=== PATIENT | male | born 1995 | race Two or more races ===

== ENCOUNTER 2017-03-04 17:44 | Emergency (ER) | payer SELFPAY | END 2017-03-04 18:48 | disposition left against medical advice (07) | LOC: ER 18:15 | DX: R22.0 Localized swelling, mass and lump, head (principal); Z53.21 Procedure and treatment not carried out due to patient leaving prior to being seen by health care provider ==

== ENCOUNTER 2017-04-16 15:27 | Emergency (ER) | payer MEDICAID, OTHER ==
[~2017-04-16] VITALS: Ht 167.6 cm; Wt 83.9 kg
[2017-04-16] MEDS ORDERED: SODIUM CHLORIDE 0.9% 1,000 ML IV ONE (16:15)
[2017-04-16 18:12] LABS: Basophils # (auto) 0.1 uL; Basophils % (auto) 0.7 % (0.0-2.0); Eosinophils # (auto) 0.2 uL; Eosinophils % (auto) 2.4 % (0.0-7.0); Hematocrit 46.5 % (41.0-53.0); Hemoglobin 15.7 g/dL (13.5-17.5); Lymphocytes # (auto) 2.4 uL; Lymphocytes % (auto) 29.1 % (10.0-50.0); Mean Corpuscular Hgb Conc. 33.7 g/dL (32.0-36.0); Mean Corpuscular Volume 94.9 fL (80.0-100.0); Monocytes # (auto) 0.8 uL; Monocytes % (auto) 9.2 % (0.0-12.0); Neutrophils # (auto) 4.8 uL; Neutrophils % (auto) 58.6 % (37.0-80.0); Nucleated Red Blood Cells % 0.1 %; Platelet Count (auto) 243 10^3/uL (140-450); Red Cell Distribution Width 13.5 % (11.8-14.3); White Blood Cell 8.2 10^3/uL (4.4-10.8)
[2017-04-16 18:14] VITALS: BP 142/93
[2017-04-16 18:26] LABS: Albumin 4.1 g/dL (3.4-5.0); Magnesium 2.2 mg/dL (1.6-2.6); Potassium 3.8 mmol/L (3.5-5.1)
[2017-04-16] MEDS ORDERED: LORazepam 0.5 MG TAB PO ONE (18:30)
[2017-04-16 18:31] LABS: Bilirubin, Total 0.6 mg/dL (0.2-1.0); Total Protein 8.1 g/dL (6.4-8.2)
[2017-04-16] MEDS ORDERED: IOHEXOL 300 MG/ML 100ML BOTTLE IJ ONE (19:03)
== END 2017-04-16 19:25 | disposition left against medical advice (07) ==
LOC: ER 15:34
DX: S59.911A Unspecified injury of right forearm, initial encounter (principal); W29.8XXA Contact with other powered hand tools and household machinery, initial encounter; Y93.89 Activity, other specified; Y92.89 Other specified places as the place of occurrence of the external cause; Y99.8 Other external cause status
CPT/HCPCS: 36415; 80053; 83735; 85025; 99284; J7030

== ENCOUNTER 2018-08-03 23:54 | Emergency (ER) | payer SELFPAY ==
[~2018-08-03] VITALS: Ht 167.6 cm; Wt 68.0 kg
[2018-08-04] MEDS ORDERED: LIDOCAINE W/ EPINEPHRINE 2% INJ 20ML VIAL IJ ONE (01:45)
[2018-08-04 02:05] VITALS: BP 109/63
[2018-08-04] MEDS ORDERED: TETANUS-DIPTH-ACEL PERTUSSIS 0.5ML SYRG IM ONE (02:30)
== END 2018-08-04 02:34 ==
LOC: MERGE 08-04 00:01 → ER 08-04 00:01
DX: S01.01XA Laceration without foreign body of scalp, initial encounter (principal); M25.511 Pain in right shoulder; R51 Headache; Y04.2XXA Assault by strike against or bumped into by another person, initial encounter; Y93.89 Activity, other specified; Y92.89 Other specified places as the place of occurrence of the external cause; Y99.8 Other external cause status
CPT/HCPCS: 12001; 36415; 70450; 70486; 80320; 90471

== ENCOUNTER 2021-09-03 19:37 | Emergency (ER) | payer SELFPAY ==
[~2021-09-03] VITALS: Ht 172.7 cm; Wt 63.5 kg
[2021-09-04 02:33] VITALS: BP 135/46
== END 2021-09-04 00:43 ==
LOC: ER 19:37
DX: F11.10 Opioid abuse, uncomplicated (principal)
CPT/HCPCS: 71045; 74176; 93005